=== PATIENT | male | born 1970 | race Caucasian/White ===

== ENCOUNTER 2016-10-24 13:56 | Emergency (ER) | payer BC, OTHER ==
[~2016-10-24] VITALS: Ht 177.8 cm; Wt 71.8 kg
[~2016-10-24 13:56] MED LIST: ABILIFY5 MG PO; AFRIN,GENASAL D15 ML BOTH NARES; AMBIEN10 MG PO; AMLODIPINE BESYL5 MG PO; AMOXICILLIN500 MG PO; AMPICILLIN TRI500 MG PO; ATARAX,VISTARIL50 MG PO; ATIVAN0.5 MG PO; BACTRIM,SEPT1 TABLET PO; BACTROBAN NASAL1 G1 BOTH NARES; BACTROBAN OINTM22 GM TP; CEFDINIR300 MG PO; CELEXA20 MG PO; CIPRO500 MG PO; CIPROFLOXACIN500 M1 PO; CLONAZEPAM0.5 MG PO; CLONIDINE HCL0.1 MG PO; CYMBALTA60 MG PO; DILAUDID2 MG PO; DILAUDID4 MG PO; EFFEXOR XR150 MG PO; FLEXERIL10 MG PO; FLOMAX0.4 MG PO; HYDROCODON-ACE1 EAC7 PO; HYDROMORPHONE HC2 MG PO; HYDROXYZINE PAM25 MG PO; KEFLEX500 MG PO; KLONOPIN0.5 M1 PO; LIPITOR10 MG PO; LORAZEPAM0.5 MG PO; MACROBID100 MG PO; MOTRIN600 MG PO; MOTRIN800 MG PO; NAPROSYN500 MG PO; NAPROXEN500 MG PO; NORCO 5/3251 TABLET PO; OXYCODONE15 MG PO; PAROXETINE HCL40 MG PO; PAXIL20 MG PO; PAXIL40 MG PO; PERCOCET 10/1 TABLE1 PO; PERCOCET 5/31 TABLET PO; SUBOXONE 8 M1 TABLET PO; SUBOXONE 8 M1 TABLET SL; SYNTHROID125 MCG PO; TRAZODONE HCL50 MG PO; ULTRAM50 MG PO; UROCIT-K10 MEQ PO; VENLAFAXINE HC150 M1 PO; VICODIN 5-3001 EACH PO; ZOFRAN ODT4 MG PO; ZOFRAN ODT8 MG PO; ZOFRAN4 MG PO; ZOFRAN8 MG PO; ZOLOFT100 MG PO; ZOLOFT50 MG PO
[2016-10-24 14:39] LABS: MCH 30.3 PG (29.0-34.0); MCHC 33.1 G/DL (30.0-36.0); MCV 91.5 FL (86-99); MEAN PLAT.VOLUME 10.4 uM^3 (9.0-12.4); PLATELET COUNT 282 K/uL (156-360); RBC DIS.WIDTH-CV 14.9 % (11.8-14.6); RBC DIS.WIDTH-SD 50.4 % (39-53); RED BLOOD COUNT 4.26 M/uL (4.00-5.50); WHITE BLOOD COUNT 11.6 K/uL (4.1-10.2)
[2016-10-24 14:50] LABS: CHLORIDE 106 mEq/L (99-109); POTASSIUM 4.2 mEq/L (3.7-5.4); SODIUM 139 mEq/L (136-147)
[2016-10-24 14:51] LABS: GLUCOSE 90 mg/dL (70-99)
[2016-10-24 14:53] LABS: ANION GAP 10 MEQ/L (2-14)
[2016-10-24 14:55] LABS: GFR ESTIMATE (CALCULATED) 58 mL/min/
[2016-10-24 14:56] LABS: UREA NITROGEN (BUN) 23 mg/dL (9-23)
[2016-10-24 15:02] LABS: ADD MIUA? YES; BILIRUBIN NEGATIVE; BLOOD MODERATE; COLOR YELLOW ((YELLOW)); GLUCOSE (STRIP) NEGATIVE; KETONES 5; LEUKOCYTES MODERATE; NITRITE NEGATIVE; PROTEIN (STRIP) NEGATIVE; SPECIFIC GRAVITY 1.024 (1.000-1.030); UROBILINOGEN 0.2 MG/DL (0.2-1.0)
[2016-10-24 15:31] LABS: BACTERIA NONE SEEN /HPF; CALCIUM OXALATE CRYSTALS 1+ /HPF; EPITHELIAL CELLS RARE /HPF; HYALINE CASTS 0-5 /LPF; MUCUS TRACE /LPF; RED BLOOD CELLS 20-30 /HPF (0-5); UCUL ADDED? NO; WHITE BLOOD CELLS 30-40 /HPF (0-5)
[2016-10-24 15:36] LABS: CASTS PRESENT /LPF
[2016-10-24 15:37] LABS: CRYSTALS PRESENT
[2016-10-24] MEDS ORDERED: NORVASC5 MG PO (16:45)
[2016-10-24] MEDS ORDERED: LUVOX50 MG PO (16:46)
[2016-10-24] MEDS ORDERED: LEVO-T125 MCG PO (16:46)
[2016-10-24] MEDS ORDERED: KLONOPIN0.5 M1 PO (16:46)
[2016-10-24] MEDS ORDERED: NEURONTIN300 MG PO (16:46)
[2016-10-24 18:03] LABS: TOTAL BILIRUBIN 0.2 mg/dL (0.0-1.0)
[2016-10-24 18:04] LABS: ALKALINE PHOSPHATASE 93 IU/L (3-129)
[2016-10-24 18:05] LABS: THC CANNABINOIDS PRESUMPTIVE POSITIVE (50 ng/mL)
[2016-10-24 18:06] LABS: ADD MEDTOX COMMENT Y; AMPHETAMINE NEGATIVE (500 ng/mL); BARBITURATES NEGATIVE (200 ng/mL); BENZODIAZEPINES PRESUMPTIVE POSITIVE (150 ng/mL); COCAINE NEGATIVE (150 ng/mL); INTERNAL CONTROLS VALID? YES; METHADONE NEGATIVE (200 ng/mL); METHAMPHETAMINE NEGATIVE (500 ng/mL); OPIATES (MORPHINE) PRESUMPTIVE POSITIVE (100 ng/mL); OXYCODONE PRESUMPTIVE POSITIVE (100 ng/mL); PHENCYCLIDINE NEGATIVE (25 ng/mL); PROPOXYPHENE NEGATIVE (300 ng/mL); TRICYCLIC ANTIDEPRESSANTS NEGATIVE (300 ng/mL)
[2016-10-24 18:07] LABS: DIRECT BILIRUBIN 0.1 mg/dL (0.0-0.3)
[2016-10-24 18:08] LABS: LIPASE 5 U/L (1.0-51.0)
[2016-10-24 18:42] LABS: BENZODIAZEPINES, URINE SCREEN POSITIVE (200 ng/mL)
[2016-10-24] MEDS ORDERED: ZOFRAN ODT4 MG PO (20:25)
[2016-10-24] MEDS ORDERED: MOTRIN800 MG PO (20:25)
[2016-10-24] MEDS ORDERED: NORCO 10/3251 TABLET PO (20:25)
[2016-10-24] MEDS ORDERED: KEFLEX500 MG PO (20:25)
[2016-10-24 20:43] VITALS: BP 120/62
== END 2016-10-24 20:44 | disposition home or self-care (01) ==
LOC: EME 13:56 → EXP 13:56
DX: N20.0 Calculus of kidney (principal); R31.9 Hematuria, unspecified; Z98.890 Other specified postprocedural states; I10 Essential (primary) hypertension; K21.9 Gastro-esophageal reflux disease without esophagitis; N28.9 Disorder of kidney and ureter, unspecified; I44.7 Left bundle-branch block, unspecified; Z87.891 Personal history of nicotine dependence
CPT/HCPCS: 74000; 76770; 80048; 80076; 81003; 83690; 84443; 84999; 85027; 87086; 99281; 99284; J1885; J3010

== ENCOUNTER 2017-03-17 11:43 | Emergency (ER) | payer BC ==
[~2017-03-17] VITALS: Ht 177.8 cm; Wt 71.0 kg
[~2017-03-17 11:43] MED LIST changes: +LEVO-T125 MCG PO; +LUVOX50 MG PO; +NEURONTIN300 MG PO; +NORCO 10/3251 TABLET PO; +NORVASC5 MG PO
[2017-03-17 12:44] LABS: ADD MIUA? YES; BILIRUBIN NEGATIVE; BLOOD LARGE; COLOR YELLOW ((YELLOW)); GLUCOSE (STRIP) NEGATIVE; KETONES NEGATIVE; LEUKOCYTES NEGATIVE; NITRITE NEGATIVE; PROTEIN (STRIP) 30; SPECIFIC GRAVITY 1.015 (1.000-1.030); UROBILINOGEN 0.2 MG/DL (0.2-1.0)
[2017-03-17 13:00] LABS: BACTERIA NONE SEEN /HPF; EPITHELIAL CELLS NONE SEEN /HPF; MUCUS 1+ /LPF; RED BLOOD CELLS TNTC /HPF (0-5); UCUL ADDED? YES; WHITE BLOOD CELLS 0-5 /HPF (0-5)
[2017-03-17 13:03] LABS: HEMATOCRIT 46.9 % (38.0-50.0); MCH 30.8 PG (29.0-34.0); MCHC 34.1 G/DL (30.0-36.0); MCV 90.4 FL (86-99); MEAN PLAT.VOLUME 10.1 uM^3 (9.0-12.4); PLATELET COUNT 407 K/uL (156-360); RBC DIS.WIDTH-CV 14.3 % (11.8-14.6); RBC DIS.WIDTH-SD 47.6 % (39-53); RED BLOOD COUNT 5.19 M/uL (4.00-5.50); WHITE BLOOD COUNT 10.8 K/uL (4.1-10.2)
[2017-03-17 13:12] LABS: CHLORIDE 106 mEq/L (99-109); POTASSIUM 4.4 mEq/L (3.7-5.4); SODIUM 141 mEq/L (136-147)
[2017-03-17 13:13] LABS: GLUCOSE 91 mg/dL (70-99)
[2017-03-17 13:15] LABS: ANION GAP 11 MEQ/L (2-14)
[2017-03-17 13:17] LABS: GFR ESTIMATE (CALCULATED) > 59 mL/min/
[2017-03-17 13:18] LABS: UREA NITROGEN (BUN) 16 mg/dL (9-23)
[2017-03-17] MEDS ORDERED: PERCOCET 5/31 TABLET PO (16:24)
[2017-03-17] MEDS ORDERED: FLOMAX0.4 MG PO (16:25)
[2017-03-17] MEDS ORDERED: NAPROXEN500 MG PO (16:25)
[2017-03-17 16:28] VITALS: BP 115/89
== END 2017-03-17 16:29 | disposition home or self-care (01) ==
LOC: EME 11:43
DX: N20.1 Calculus of ureter (principal); R31.9 Hematuria, unspecified; Q61.5 Medullary cystic kidney; Z87.442 Personal history of urinary calculi; K21.9 Gastro-esophageal reflux disease without esophagitis; I10 Essential (primary) hypertension; Z87.891 Personal history of nicotine dependence
CPT/HCPCS: 74176; 80048; 81003; 85027; 87086; 99281; 99284; J1885; J3010

== ENCOUNTER 2017-04-28 08:58 | Emergency (ER) | payer BC ==
[~2017-04-28] VITALS: Ht 177.8 cm; Wt 67.6 kg
[2017-04-28 09:24] LABS: HEMATOCRIT 49.3 % (38.0-50.0); MCH 30.5 PG (29.0-34.0); MCHC 33.1 G/DL (30.0-36.0); MCV 92.1 FL (86-99); RBC DIS.WIDTH-SD 47.5 % (39-53); RED BLOOD COUNT 5.35 M/uL (4.00-5.50); WHITE BLOOD COUNT 12.8 K/uL (4.1-10.2)
[2017-04-28 09:33] LABS: ADD MIUA? YES; BILIRUBIN NEGATIVE; BLOOD SMALL; COLOR YELLOW ((YELLOW)); GLUCOSE (STRIP) NEGATIVE; KETONES 20; LEUKOCYTES TRACE; NITRITE NEGATIVE; PROTEIN (STRIP) NEGATIVE; SPECIFIC GRAVITY 1.017 (1.000-1.030); UROBILINOGEN 0.2 MG/DL (0.2-1.0)
[2017-04-28 09:35] LABS: CHLORIDE 99 mEq/L (99-109); POTASSIUM 3.5 mEq/L (3.7-5.4); SODIUM 137 mEq/L (136-147)
[2017-04-28 09:36] LABS: GLUCOSE 99 mg/dL (70-99)
[2017-04-28 09:38] LABS: ANION GAP 19 MEQ/L (2-14)
[2017-04-28 09:40] LABS: BACTERIA RARE /HPF; CALCIUM OXALATE CRYSTALS 1+ /HPF; EPITHELIAL CELLS RARE /HPF; HYALINE CASTS 0-5 /LPF; MUCUS TRACE /LPF; UCUL ADDED? YES; WHITE BLOOD CELLS 20-30 /HPF (0-5)
[2017-04-28 09:40] LABS: GFR ESTIMATE (CALCULATED) > 59 mL/min/
[2017-04-28 09:41] LABS: UREA NITROGEN (BUN) 22 mg/dL (9-23)
[2017-04-28 10:03] LABS: HEMATOLOGY COMMENT 1 SN; MEAN PLAT.VOLUME 10.1 uM^3 (9.0-12.4); PLAT.SUFFICIENCY INCREASED; PLATELET COUNT 374 K/uL (156-360)
[2017-04-28] MEDS ORDERED: NAPROXEN500 MG PO (10:32)
[2017-04-28] MEDS ORDERED: ZOFRAN ODT4 MG PO (10:32)
[2017-04-28] MEDS ORDERED: BACTRIM,SEPT1 TABLET PO (10:32)
[2017-04-28 10:52] VITALS: BP 127/87
== END 2017-04-28 10:54 | disposition home or self-care (01) ==
LOC: EME 08:58
DX: N39.0 Urinary tract infection, site not specified (principal); R31.9 Hematuria, unspecified; Z87.442 Personal history of urinary calculi; I10 Essential (primary) hypertension; Z87.891 Personal history of nicotine dependence
CPT/HCPCS: 74176; 80048; 81003; 85027; 87086; 99281; 99285; J1885; J7120

== ENCOUNTER 2017-05-04 08:01 | Emergency (ER) | payer BC ==
[~2017-05-04] VITALS: Ht 177.8 cm; Wt 67.3 kg
[2017-05-04 08:39] LABS: HEMATOCRIT 48.5 % (38.0-50.0); MCH 30.1 PG (29.0-34.0); MCV 91.2 FL (86-99); MEAN PLAT.VOLUME 9.7 uM^3 (9.0-12.4); PLATELET COUNT 371 K/uL (156-360); RBC DIS.WIDTH-CV 14.7 % (11.8-14.6); RBC DIS.WIDTH-SD 49.8 % (39-53); RED BLOOD COUNT 5.32 M/uL (4.00-5.50); WHITE BLOOD COUNT 12.6 K/uL (4.1-10.2)
[2017-05-04 08:49] LABS: CHLORIDE 104 mEq/L (99-109); SODIUM 141 mEq/L (136-147)
[2017-05-04 08:51] LABS: GLUCOSE 61 mg/dL (70-99)
[2017-05-04 08:52] LABS: ANION GAP 12 MEQ/L (2-14); POTASSIUM 4.9 mEq/L (3.7-5.4)
[2017-05-04 08:54] LABS: GFR ESTIMATE (CALCULATED) 53 mL/min/
[2017-05-04 08:55] LABS: UREA NITROGEN (BUN) 17 mg/dL (9-23)
[2017-05-04 08:57] LABS: THC CANNABINOIDS PRESUMPTIVE POSITIVE (50 ng/mL)
[2017-05-04 08:58] LABS: ADD MEDTOX COMMENT Y; AMPHETAMINE NEGATIVE (500 ng/mL); BARBITURATES NEGATIVE (200 ng/mL); BENZODIAZEPINES PRESUMPTIVE POSITIVE (150 ng/mL); COCAINE NEGATIVE (150 ng/mL); INTERNAL CONTROLS VALID? YES; METHADONE NEGATIVE (200 ng/mL); METHAMPHETAMINE NEGATIVE (500 ng/mL); OPIATES (MORPHINE) NEGATIVE (100 ng/mL); OXYCODONE NEGATIVE (100 ng/mL); PHENCYCLIDINE NEGATIVE (25 ng/mL); PROPOXYPHENE NEGATIVE (300 ng/mL); TRICYCLIC ANTIDEPRESSANTS NEGATIVE (300 ng/mL)
[2017-05-04 09:00] LABS: TROP-I INTERPRETATION NEGATIVE; TROPONIN-I < 0.01 ng/mL (0.0-0.30)
[2017-05-04 09:11] LABS: ADD MIUA? YES; BILIRUBIN NEGATIVE; BLOOD SMALL; COLOR YELLOW ((YELLOW)); GLUCOSE (STRIP) NEGATIVE; KETONES NEGATIVE; LEUKOCYTES SMALL; NITRITE NEGATIVE; PROTEIN (STRIP) NEGATIVE; SPECIFIC GRAVITY 1.017 (1.000-1.030)
[2017-05-04 09:41] LABS: BENZODIAZEPINES QUANT VALUE 0 NG/ML; BENZODIAZEPINES, URINE SCREEN Negative (200 ng/mL)
[2017-05-04 10:04] LABS: BACTERIA RARE /HPF; EPITHELIAL CELLS NONE SEEN /HPF; HYALINE CASTS 0-5 /LPF; MUCUS TRACE /LPF; WHITE BLOOD CELLS 15-20 /HPF (0-5)
[2017-05-04 10:56] LABS: TROP-I INTERPRETATION NEGATIVE; TROPONIN-I < 0.01 ng/mL (0.0-0.30)
[2017-05-04 11:33] VITALS: BP 102/72
== END 2017-05-04 11:35 | disposition home or self-care (01) ==
LOC: EME 08:01
PROVIDERS: Nurse Practitioner Family
DX: R07.9 Chest pain, unspecified (principal); F33.1 Major depressive disorder, recurrent, moderate; F41.1 Generalized anxiety disorder; Z56.3 Stressful work schedule; I10 Essential (primary) hypertension; F17.200 Nicotine dependence, unspecified, uncomplicated; K21.9 Gastro-esophageal reflux disease without esophagitis
CPT/HCPCS: 71020; 80048; 81003; 84484; 84999; 85027; 90839; 93005; 99281; 99285

== ENCOUNTER 2017-05-05 16:22 | Emergency (ER) | payer BC ==
[~2017-05-05] VITALS: Ht 177.8 cm; Wt 64.4 kg
[2017-05-05 17:51] LABS: HEMATOCRIT 37.7 % (38.0-50.0); MCH 30.6 PG (29.0-34.0); MCHC 33.7 G/DL (30.0-36.0); MCV 90.8 FL (86-99); RBC DIS.WIDTH-CV 14.4 % (11.8-14.6); RBC DIS.WIDTH-SD 47.9 % (39-53); WHITE BLOOD COUNT 9.9 K/uL (4.1-10.2)
[2017-05-05 17:56] LABS: CHLORIDE 107 mEq/L (99-109); SODIUM 139 mEq/L (136-147)
[2017-05-05 17:58] LABS: GLUCOSE 75 mg/dL (70-99)
[2017-05-05 17:59] LABS: ANION GAP 7 MEQ/L (2-14)
[2017-05-05 18:01] LABS: SERUM ETHYL ALCOHOL < 10 mg/dL
[2017-05-05 18:02] LABS: GFR ESTIMATE (CALCULATED) > 59 mL/min/; UREA NITROGEN (BUN) 18 mg/dL (9-23)
[2017-05-05 18:06] LABS: RED BLOOD COUNT 4.15 M/uL (4.00-5.50)
[2017-05-05 18:36] LABS: MEAN PLAT.VOLUME 10.1 uM^3 (9.0-12.4); PLAT.SUFFICIENCY ADEQUATE; PLATELET COUNT 311 K/uL (156-360)
[2017-05-05 23:08] VITALS: BP 113/87
== END 2017-05-05 23:20 | disposition home or self-care (01) ==
LOC: EME 16:22
PROVIDERS: Emergency Medicine
DX: R10.9 Unspecified abdominal pain (principal); V47.5XXA Car driver injured in collision with fixed or stationary object in traffic accident, initial encounter; F31.32 Bipolar disorder, current episode depressed, moderate; F41.1 Generalized anxiety disorder; Q61.5 Medullary cystic kidney; Z87.442 Personal history of urinary calculi; K21.9 Gastro-esophageal reflux disease without esophagitis; I10 Essential (primary) hypertension; F41.9 Anxiety disorder, unspecified; I44.7 Left bundle-branch block, unspecified; Z91.040 Latex allergy status; F17.200 Nicotine dependence, unspecified, uncomplicated
CPT/HCPCS: 70450; 71010; 80048; 85027; 90837; 99281; 99285; G0480

== ENCOUNTER 2017-07-29 23:11 | Emergency (ER) | payer OTHER ==
[~2017-07-29] VITALS: Ht 177.8 cm; Wt 79.1 kg
[2017-07-30 06:00] VITALS: BP 118/83
== END 2017-07-30 06:10 | disposition home or self-care (01) ==
LOC: EME 23:11
DX: T42.4X5A Adverse effect of benzodiazepines, initial encounter (principal); I10 Essential (primary) hypertension; F32.9 Major depressive disorder, single episode, unspecified; F41.9 Anxiety disorder, unspecified; K21.9 Gastro-esophageal reflux disease without esophagitis; F17.200 Nicotine dependence, unspecified, uncomplicated; I44.7 Left bundle-branch block, unspecified; N28.89 Other specified disorders of kidney and ureter; Z87.442 Personal history of urinary calculi; Z88.5 Allergy status to narcotic agent; Z91.040 Latex allergy status
CPT/HCPCS: 99281; 99284

== ENCOUNTER 2017-08-08 21:21 | Emergency (ER) | payer OTHER ==
[~2017-08-08] VITALS: Ht 177.8 cm; Wt 80.4 kg
[2017-08-08 22:52] LABS: APPEARANCE CLEAR ((CLEAR)); BILIRUBIN NEGATIVE; BLOOD LARGE; COLOR YELLOW ((YELLOW)); GLUCOSE (STRIP) NEGATIVE; KETONES NEGATIVE; LEUKOCYTES TRACE; NITRITE NEGATIVE; PROTEIN (STRIP) NEGATIVE; SPECIFIC GRAVITY 1.015 (1.000-1.030); UROBILINOGEN 0.2 MG/DL (0.2-1.0)
[2017-08-08 23:12] LABS: RED BLOOD CELLS TNTC /HPF (0-5)
[2017-08-08 23:13] LABS: EPITHELIAL CELLS RARE /HPF; MUCUS NONE SEEN /LPF
[2017-08-08 23:14] LABS: AMORPHOUS URATES CRYSTALS 1+; BACTERIA NONE SEEN /HPF; UCUL ADDED? YES
[2017-08-08 23:29] LABS: HEMATOCRIT 40.5 % (38.0-50.0); HEMOGLOBIN 13.3 G/DL (12.5-16.6); MCH 30.4 PG (29.0-34.0); MCHC 32.8 G/DL (30.0-36.0); MCV 92.5 FL (86-99); PLATELET COUNT 396 K/uL (156-360); RBC DIS.WIDTH-CV 14.2 % (11.8-14.6); RBC DIS.WIDTH-SD 47.8 % (39-53); RED BLOOD COUNT 4.38 M/uL (4.00-5.50); WHITE BLOOD COUNT 27.5 K/uL (4.1-10.2)
[2017-08-08 23:42] LABS: ALBUMIN 4.2 g/dL (3.2-4.8); CHLORIDE 103 mEq/L (99-109); POTASSIUM 4.2 mEq/L (3.7-5.4); SODIUM 140 mEq/L (136-147)
[2017-08-08 23:44] LABS: GLUCOSE 62 mg/dL (70-99)
[2017-08-08 23:46] LABS: TOTAL BILIRUBIN 0.3 mg/dL (0.0-1.0)
[2017-08-08 23:48] LABS: ALKALINE PHOSPHATASE 89 IU/L (3-129); CREATININE 1.4 mg/dL (0.6-1.3); GFR ESTIMATE (CALCULATED) 58 mL/min/ (58.99-99999)
[2017-08-08 23:49] LABS: UREA NITROGEN (BUN) 16 mg/dL (9-23)
[2017-08-08 23:50] LABS: AST (GOT) 20 IU/L (2-34)
[2017-08-08 23:51] LABS: ALT (GPT) 11 IU/L (3-49)
[2017-08-09 02:19] LABS: LIPASE 11 U/L (1.0-51.0)
[2017-08-09 04:17] LABS: HEMATOCRIT 40.1 % (38.0-50.0); HEMOGLOBIN 13.3 G/DL (12.5-16.6); MCH 30.6 PG (29.0-34.0); MCHC 33.2 G/DL (30.0-36.0); MCV 92.2 FL (86-99); PLATELET COUNT 384 K/uL (156-360); RBC DIS.WIDTH-CV 14.4 % (11.8-14.6); RED BLOOD COUNT 4.35 M/uL (4.00-5.50); WHITE BLOOD COUNT 22.8 K/uL (4.1-10.2)
[2017-08-09] MEDS ORDERED: CIPRO500 MG PO (04:21)
[2017-08-09] MEDS ORDERED: PERCOCET 5/31 TABLET PO (04:21)
[2017-08-09 04:55] VITALS: BP 106/69
== END 2017-08-09 04:55 | disposition home or self-care (01) ==
LOC: EME 21:21
PROVIDERS: Emergency Medicine
DX: N30.91 Cystitis, unspecified with hematuria (principal); Q61.5 Medullary cystic kidney; Z87.442 Personal history of urinary calculi; I10 Essential (primary) hypertension; F32.9 Major depressive disorder, single episode, unspecified; K21.9 Gastro-esophageal reflux disease without esophagitis; F41.9 Anxiety disorder, unspecified; F17.200 Nicotine dependence, unspecified, uncomplicated; Z88.5 Allergy status to narcotic agent
CPT/HCPCS: 74176; 80053; 81003; 82948; 83605; 83690; 85027; 87040; 87086; 99281; 99285; J0744; J2270; J2405; J7030

== ENCOUNTER 2017-08-22 12:29 | Emergency (ER) | payer OTHER ==
[~2017-08-22] VITALS: Ht 177.8 cm; Wt 73.3 kg
[2017-08-22 13:37] LABS: HEMOGLOBIN 14.3 G/DL (12.5-16.6); MCH 30.5 PG (29.0-34.0); MCHC 33.3 G/DL (30.0-36.0); MCV 91.7 FL (86-99); PLATELET COUNT 423 K/uL (156-360); RBC DIS.WIDTH-CV 14.7 % (11.8-14.6); RED BLOOD COUNT 4.69 M/uL (4.00-5.50); WHITE BLOOD COUNT 15.3 K/uL (4.1-10.2)
[2017-08-22 13:41] LABS: CHLORIDE 107 mEq/L (99-109); POTASSIUM 4.7 mEq/L (3.7-5.4); SODIUM 140 mEq/L (136-147)
[2017-08-22 13:43] LABS: GLUCOSE 91 mg/dL (70-99)
[2017-08-22 13:47] LABS: GFR ESTIMATE (CALCULATED) > 59 mL/min/ (58.99-99999)
[2017-08-22 13:48] LABS: UREA NITROGEN (BUN) 12 mg/dL (9-23)
[2017-08-22 14:47] LABS: APPEARANCE CLOUDY ((CLEAR)); BILIRUBIN NEGATIVE; BLOOD MODERATE; COLOR YELLOW ((YELLOW)); GLUCOSE (STRIP) NEGATIVE; KETONES NEGATIVE; LEUKOCYTES TRACE; NITRITE NEGATIVE; PROTEIN (STRIP) 30; UROBILINOGEN 0.2 MG/DL (0.2-1.0)
[2017-08-22 15:03] LABS: BACTERIA RARE /HPF; CALCIUM OXALATE CRYSTALS 3+ /HPF; EPITHELIAL CELLS NONE SEEN /HPF; MUCUS 2+ /LPF; RED BLOOD CELLS 0-5 /HPF (0-5); UCUL ADDED? NO; WHITE BLOOD CELLS 0-5 /HPF (0-5)
[2017-08-22] MEDS ORDERED: PERCOCET 5/31 TABLET PO (16:43)
[2017-08-22] MEDS ORDERED: CIPRO500 MG PO (16:43)
[2017-08-22 17:02] VITALS: BP 120/80
== END 2017-08-22 17:03 | disposition home or self-care (01) ==
LOC: EME 12:29
DX: N39.0 Urinary tract infection, site not specified (principal); N20.0 Calculus of kidney; K57.30 Diverticulosis of large intestine without perforation or abscess without bleeding; Z87.442 Personal history of urinary calculi; I10 Essential (primary) hypertension; Z87.891 Personal history of nicotine dependence
CPT/HCPCS: 74176; 80048; 81003; 85027; J1885; J2270; J2405

== ENCOUNTER 2017-09-19 09:34 | Emergency (ER) | payer OTHER ==
[~2017-09-19] VITALS: Ht 175.3 cm; Wt 79.7 kg
[2017-09-19 10:03] LABS: APPEARANCE CLEAR ((CLEAR)); BILIRUBIN NEGATIVE; BLOOD LARGE; COLOR YELLOW ((YELLOW)); GLUCOSE (STRIP) NEGATIVE; KETONES NEGATIVE; LEUKOCYTES NEGATIVE; NITRITE NEGATIVE; PROTEIN (STRIP) NEGATIVE; SPECIFIC GRAVITY 1.014 (1.000-1.030); UROBILINOGEN 0.2 MG/DL (0.2-1.0)
[2017-09-19 10:09] LABS: HEMATOCRIT 41.3 % (38.0-50.0); MCH 30.3 PG (29.0-34.0); MCHC 33.9 G/DL (30.0-36.0); MCV 89.4 FL (86-99); PLATELET COUNT 340 K/uL (156-360); RBC DIS.WIDTH-CV 15.1 % (11.8-14.6); RED BLOOD COUNT 4.62 M/uL (4.00-5.50); WHITE BLOOD COUNT 10.8 K/uL (4.1-10.2)
[2017-09-19 10:13] LABS: BACTERIA RARE /HPF; EPITHELIAL CELLS RARE /HPF; MUCUS TRACE /LPF; RED BLOOD CELLS TNTC /HPF (0-5); UCUL ADDED? YES; WHITE BLOOD CELLS 0-5 /HPF (0-5)
[2017-09-19 10:21] LABS: CHLORIDE 104 mEq/L (99-109); SODIUM 140 mEq/L (136-147)
[2017-09-19 10:23] LABS: GLUCOSE 85 mg/dL (70-99)
[2017-09-19 10:26] LABS: CREATININE 0.9 mg/dL (0.6-1.3); GFR ESTIMATE (CALCULATED) > 59 mL/min/ (58.99-99999)
[2017-09-19 10:27] LABS: UREA NITROGEN (BUN) 11 mg/dL (9-23)
[2017-09-19 11:32] LABS: ALBUMIN 4.5 g/dL (3.2-4.8)
[2017-09-19 11:35] LABS: TOTAL PROTEIN 7.3 g/dL (6.4-8.3)
[2017-09-19 11:37] LABS: TOTAL BILIRUBIN 0.3 mg/dL (0.0-1.0)
[2017-09-19 11:38] LABS: ALKALINE PHOSPHATASE 89 IU/L (3-129)
[2017-09-19 11:40] LABS: AST (GOT) 60 IU/L (2-34); DIRECT BILIRUBIN 0.1 mg/dL (0.0-0.3)
[2017-09-19 11:41] LABS: ALT (GPT) 27 IU/L (3-49); LIPASE 10 U/L (1.0-51.0)
[2017-09-19] MEDS ORDERED: BENTYL20 MG PO (13:55)
[2017-09-19] MEDS ORDERED: COLACE100 MG PO (13:55)
[2017-09-19 14:00] VITALS: BP 129/95
== END 2017-09-19 14:00 | disposition home or self-care (01) ==
LOC: EME 09:34
DX: K59.00 Constipation, unspecified (principal); N20.0 Calculus of kidney; R10.31 Right lower quadrant pain; R31.9 Hematuria, unspecified; Z87.442 Personal history of urinary calculi; I10 Essential (primary) hypertension; E06.3 Autoimmune thyroiditis; K21.9 Gastro-esophageal reflux disease without esophagitis; Z87.891 Personal history of nicotine dependence; F32.9 Major depressive disorder, single episode, unspecified; F41.9 Anxiety disorder, unspecified; Z88.5 Allergy status to narcotic agent; Z91.040 Latex allergy status
CPT/HCPCS: 74018; 76705; 76770; 80048; 80076; 81003; 83690; 85027; 87086; 99281; 99284; J1885